=== PATIENT | female | born 1950 | race Asian ===

== ENCOUNTER 2017-08-02 15:30 | Inpatient (IN) | payer MEDICARE ==
[2017-08-02 16:38] VITALS: BP 0/0
[2017-08-02] MEDS ORDERED: Hydrocodone/APAP 5mg/325mg Tab PO PRN (17:45)
[2017-08-02] MEDS ORDERED: Magnesium Hydroxide (MOM) 30 mL UDC PO PRN (17:46)
[2017-08-02] MEDS ORDERED: Maalox 30 mL Cup PO PRN (17:46)
[2017-08-02] MEDS: Atorvastatin Calcium 10 MG TAB PO SCH (20:36)
[2017-08-03] MEDS: INSULIN ASPART, RECOMBINANT 100 UNITS/ML SUBQ SCH ×2 (06:33→21:26)
[2017-08-03] MEDS: Multivitamin Tab PO SCH (09:19)
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
[2017-08-03] MEDS: Atorvastatin Calcium 10 MG TAB PO SCH (21:24)
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
[2017-08-04] MEDS: INSULIN ASPART, RECOMBINANT 100 UNITS/ML SUBQ SCH ×4 (06:53→21:28)
[2017-08-04 08:02] LABS: CHOLESTEROL 142 mg/dL (<200); HDL -HIGH DENSITY LIPOPROTEIN 36 mg/dL (23-92); TRIGLYCERIDES 141 mg/dL (<150)
[2017-08-04] MEDS: Multivitamin Tab PO SCH (09:38)
--- NOTE | 2017-08-04 09:43 | General Progress Note ---
Subjective - Review of Systems Subjective: Patient is seen and examined. No new events. Objective - Results Recent Labs: Laboratory Last Values POC Glucose 126 MG/DL (70 - 105) H 08/04/17 06:01 Triglycerides 141 mg/dL (<150) 08/04/17 07:19 Cholesterol 142 mg/dL (<200) 08/04/17 07:19 LDL Cholesterol Direct 67 mg/dL (75-193) L 08/04/17 07:19 HDL Cholesterol 36 mg/dL (23-92) 08/04/17 07:19 - Physical Exam Vitals and I&O: Vital Signs Temp 97.6 F 08/04/17 06:41 Pulse 58 08/04/17 06:41 Resp 18 08/04/17 06:41 BP 129/65 08/04/17 06:41 Pulse Ox 96 08/04/17 06:41 Intake & Output 08/03/17 08/04/17 08/04/17 18:59 06:59 18:59 Intake Total 1200 250 Balance 1200 250 Intake: Oral 1200 250 Other: # Voids 2 # Bowel Movements 1 0 Active Medications: Current Medications Acetaminophen (Tylenol) 650 mg PO Q4HR PRN PRN Reason: Mild Pain / Temp above 100 Stop: 10/01/17 17:45 Acetaminophen/Hydrocodone Bitart ([place] 5mg/325mg) 1 tab PO Q4H PRN PRN Reason: Pain (Moderate) Stop: 10/01/17 17:44 Al Hydrox/Mg Hydrox/Simethicone (Maalox) 30 ml PO Q4HR PRN PRN Reason: GI DISTRESS Stop: 10/01/17 17:45 Atorvastatin Calcium (Lipitor) 20 mg PO HS [facility]LEX[facility] Stop: 10/01/17 20:59 Last Admin: 08/03/17 21:24 Dose: 20 mg Cholecalciferol (Vitamin D3) 5,000 iu PO DAILY ALEXIS Stop: 10/02/17 08:59 Last Admin: 08/03/17 09:20 Dose: 5,000 iu Docusate Sodium (Colace) 100 mg PO BID [facility]LEX[facility] Stop: 10/02/17 08:59 Last Admin: 08/03/17 16:42 Dose: 100 mg Famotidine (Pepcid) 40 mg PO DAILY ALEXIS Stop: 10/02/17 08:59 Last Admin: 08/03/17 09:18 Dose: 40 mg Insulin Aspart (Novolog) 0 units SUBQ ACHS ALEXIS PRN Reason: Protocol Stop: 10/02/17 07:29 Last Admin: 08/04/17 06:53 Dose: Not Given Lisinopril (Zestril) 5 mg PO DAILY ALEXIS Stop: 10/02/17 08:59 Last Admin: 08/03/17 09:17 Dose: 5 mg Lorazepam (Ativan) 0.5 mg PO Q4HR PRN; Protocol PRN Reason: Anxiety Stop: 09/01/17 17:45 Magnesium Hydroxide (Milk Of Magnesia) 30 ml PO HS PRN PRN Reason: Constipation Multivitamins/Vitamin C (Theragran) 1 tab PO DAILY ALEXIS Stop: 10/02/17 08:59 Last Admin: 08/03/17 09:19 Dose: 1 tab Risperidone (Risperdal) 0.5 mg PO BID ALEXIS PRN Reason: Protocol Stop: 10/02/17 08:59 Last Admin: 08/03/17 16:43 Dose: 0.5 mg Zolpidem Tartrate (Ambien) 5 mg PO HS PRN PRN Reason: Insomnia Stop: 10/01/17 17:45 General: Alert, Oriented x3, Cooperative HEENT: Atraumatic, PERRLA, EOMI Neck: Supple, JVD, +2 carotid pulse wo bruit Cardiovascular: Regular rate, Normal S1, Normal S2 Lungs: Clear to auscultation Abdomen: Bowel sounds, Soft, Tender Neurological: Normal gait, Normal tone Assessment/Plan - Assessment Assessment: Diabetes 2 hypertension Hyperlipedemia DJD Psych disorder - Plan Plan: Monitor glucose and vitals. Psych meds Psych follow up General nursing care Chronic disease management Symptoms control Medication management Discussed with staff.
[2017-08-04] MEDS: Atorvastatin Calcium 10 MG TAB PO SCH (21:29)
[2017-08-05] MEDS: INSULIN ASPART, RECOMBINANT 100 UNITS/ML SUBQ SCH ×4 (06:40→21:04)
[2017-08-05] MEDS: Multivitamin Tab PO SCH (09:10)
[2017-08-05] MEDS: Atorvastatin Calcium 10 MG TAB PO SCH (21:03)
[2017-08-06] MEDS: INSULIN ASPART, RECOMBINANT 100 UNITS/ML SUBQ SCH ×3 (07:02→20:57)
[2017-08-06] MEDS: Multivitamin Tab PO SCH (10:28)
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
[2017-08-06] MEDS: Atorvastatin Calcium 10 MG TAB PO SCH (20:53)
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
--- NOTE | 2017-08-07 02:59 | Progress Notes ---
DATE: 08/06/2017 SUBJECTIVE: The patient was seen, chart reviewed, and discussed with staff. The patient continues to be self isolative, hypervigilant, paranoid especially regarding her . She has, however, been compliant with her medications following unit rules with minimal redirections. PLAN: The patient continues to be paranoid, psychotic with history of , so that she will require inpatient care center treatment. We will monitor the patient on a daily basis for response of treatment and titrate meds as needed. JOB# [id number]
[2017-08-07] MEDS: INSULIN ASPART, RECOMBINANT 100 UNITS/ML SUBQ SCH ×4 (06:47→21:36)
[2017-08-07] MEDS: Multivitamin Tab PO SCH (09:59)
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
[2017-08-07] MEDS: Atorvastatin Calcium 10 MG TAB PO SCH (21:08)
[2017-08-08] MEDS: INSULIN ASPART, RECOMBINANT 100 UNITS/ML SUBQ SCH ×3 (06:48→21:02)
[2017-08-08] MEDS: Multivitamin Tab PO SCH (09:10)
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
[2017-08-08] MEDS: Atorvastatin Calcium 10 MG TAB PO SCH (20:47)
[2017-08-09] MEDS: INSULIN ASPART, RECOMBINANT 100 UNITS/ML SUBQ SCH ×4 (06:44→21:54)
[2017-08-09] MEDS: Multivitamin Tab PO SCH (08:37)
--- NOTE | 2017-08-09 20:00 | General Progress Note ---
Subjective - Review of Systems Service Date: 08/09/17 Subjective: Patient seen and examined chart reviewed patient doing fine denied any complaints Objective - Results Recent Labs: Laboratory Last Values POC Glucose 140 MG/DL (70 - 105) H 08/09/17 16:02 Triglycerides 141 mg/dL (<150) 08/04/17 07:19 Cholesterol 142 mg/dL (<200) 08/04/17 07:19 LDL Cholesterol Direct 67 mg/dL (75-193) L 08/04/17 07:19 HDL Cholesterol 36 mg/dL (23-92) 08/04/17 07:19 - Physical Exam Vitals and I&O: Vital Signs Temp 97.6 F 08/09/17 16:01 Pulse 79 08/09/17 16:01 Resp 18 08/09/17 16:01 BP 148/93 08/09/17 16:01 Pulse Ox 95 08/09/17 16:01 Intake & Output 08/09/17 08/09/17 08/10/17 06:59 18:59 06:59 Intake Total 250 Balance 250 Intake: Oral 250 Other: # Voids 2 # Bowel Movements 0 Active Medications: Current Medications Acetaminophen (Tylenol) 650 mg PO Q4HR PRN PRN Reason: Mild Pain / Temp above 100 Stop: 10/01/17 17:45 Acetaminophen/Hydrocodone Bitart ([place] 5mg/325mg) 1 tab PO Q4H PRN PRN Reason: Pain (Moderate) Stop: 10/01/17 17:44 Al Hydrox/Mg Hydrox/Simethicone (Maalox) 30 ml PO Q4HR PRN PRN Reason: GI DISTRESS Stop: 10/01/17 17:45 Atorvastatin Calcium (Lipitor) 20 mg PO HS [facility] Stop: 10/01/17 20:59 Last Admin: 08/08/17 20:47 Dose: 20 mg Cholecalciferol (Vitamin D3) 5,000 iu PO DAILY ALEXIS Stop: 10/02/17 08:59 Last Admin: 08/09/17 09:32 Dose: 5,000 iu Docusate Sodium (Colace) 100 mg PO BID ALEXIS Stop: 10/02/17 08:59 Last Admin: 08/09/17 16:27 Dose: 100 mg Famotidine (Pepcid) 40 mg PO DAILY [facility]LEX[facility] Stop: 10/02/17 08:59 Last Admin: 08/09/17 08:37 Dose: 40 mg Insulin Aspart (Novolog) 0 units SUBQ ACHS [facility]LEXIS PRN Reason: Protocol Stop: 10/02/17 07:29 Last Admin: 08/09/17 16:09 Dose: Not Given Lisinopril (Zestril) 5 mg PO DAILY ALEXIS Stop: 10/02/17 08:59 Last Admin: 08/09/17 08:37 Dose: 5 mg Lorazepam (Ativan) 0.5 mg PO Q4HR PRN; Protocol PRN Reason: Anxiety Stop: 09/01/17 17:45 Magnesium Hydroxide (Milk Of Magnesia) 30 ml PO HS PRN PRN Reason: Constipation Multivitamins/Vitamin C (Theragran) 1 tab PO DAILY ALEXIS Stop: 10/02/17 08:59 Last Admin: 08/09/17 08:37 Dose: 1 tab Risperidone (Risperdal) 0.5 mg PO BID [facility]LEXIS PRN Reason: Protocol Stop: 10/02/17 08:59 Last Admin: 08/09/17 16:27 Dose: 0.5 mg Zolpidem Tartrate (Ambien) 5 mg PO HS PRN PRN Reason: Insomnia Stop: 10/01/17 17:45 General: Alert, Cooperative Cardiovascular: Regular rate Lungs: Clear to auscultation Abdomen: Soft, no Tender Assessment/Plan - Assessment Assessment: DM II HTN HYPERLIPIDEMIA DJD MENTAL HEALTH DISORDER - Plan Plan: Medical problems seems stable Continue current medication MAR reviewed Psych managment per psychiatrist Nutritional Asmnt/Malnutr-PDOC - Dietary Evaluation Malnutrition Findings (Please click <Entered> for more info): Nutritional Asmnt/Malnutrition Start: 08/07/17 13: 22 Text: Status: Complete Freq: Document 08/07/17 13:23 LCHENG (Rec: 08/07/17 13:31 [email or web address] [id number]) Nutritional Asmnt/Malnutrition Patient General Information Nutritional Screening Moderate Risk Diagnosis psychosis NOS Pertinent Medical Hx/Surgical Hx DM, HTN, hyperlipidemia, DJD, psychotic disorder Subjective Information Pt seen sitting in room having lunch at the time of visit, alert and polite. Pt reported appetite good, prefer tea than coffee. Per notes, PO intake 100%. Current Diet Order/ Nutrition Support CCHO 60gm Pertinent Labs POC 115-209 in last 2 days Nutritional Hx/Data Height 1.63 m Height (Calculated Centimeters) 162.6 Current Weight (lbs) 61.507 kg Weight (Calculated Kilograms) 61.5 Weight (Calculated Grams) 97274.1 [place] Body Weight 120 % [place] Body Weight 113 Body Mass Index (BMI) 23.3 Weight Status Approriate GI Symptoms GI Symptoms None Last BM 08/03 Difficult in: None Skin Integrity/Comment: intact Estimated Nutritional Goals BEE in Kcals: Using Current wt Calories/Kcals/Kg 25-30 Kcals Calculated 3088-2728 Protein: Using Current wt Protein g/k-1.2 Protein Calculated 63-74 Fluid: ml 1550-1860ml (1ml/kcal) Nutritional Problem 1. Problem Problem altered nutrition related lab values Etiology hx of DM Signs/Symptoms: POC 115-209 Malnutrition Alert Protein-Calorie Malnutrition N/A Is there a minimum of two criteria No selected? Query Text:Check all the applicable criteria. A minimum of two criteria are recommended for diagnosis of either severe or non-severe malnutrition. Intervention/Recommendation Comments 1. Continue with current diet as ordered. 2. Monitor PO intake, wt, labs and skin integrity 3. F/U as low risk in 7 days, 08/14 Expected Outcomes/Goals Expected Outcomes/Goals 1. PO intake to meet at least 75% of nutritional needs. 2. Wt stability, skin to remain intact, blood sugar approach to WNL
[2017-08-09] MEDS: Atorvastatin Calcium 10 MG TAB PO SCH (21:54)
[2017-08-10] MEDS: INSULIN ASPART, RECOMBINANT 100 UNITS/ML SUBQ SCH ×2 (06:41→12:05)
[2017-08-10] MEDS: Multivitamin Tab PO SCH (08:10)
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
== END 2017-08-10 16:25 | disposition home or self-care (01) | DRG 885 ==
LOC: GERO 15:30
PROVIDERS: ADMIT Psychiatry & Neurology Psychiatry; ATTEND Psychiatry & Neurology Psychiatry
DX: F32.3 Major depressive disorder, single episode, severe with psychotic features (principal); E11.9 Type 2 diabetes mellitus without complications; E78.5 Hyperlipidemia, unspecified; I10 Essential (primary) hypertension; M19.90 Unspecified osteoarthritis, unspecified site; E78.00 Pure hypercholesterolemia, unspecified; Z82.49 Family history of ischemic heart disease and other diseases of the circulatory system; Z83.3 Family history of diabetes mellitus; Z79.4 Long term (current) use of insulin
CPT/HCPCS: 36415-UA; 80061-TC; 82948-90; J1815